=== PATIENT | male | born 1960 | race Caucasian/White ===

== ENCOUNTER 2019-10-14 17:29 | Emergency (ER) | payer BC ==
[2019-10-14] MEDS ORDERED: SODIUM CHLORIDE 0.9% 500 ML 500 ML IV STA (17:58)
--- NOTE | 2019-10-14 18:12 | ED ---
General Adult HPI - General Chief complaint: Extremity Injury, Upper Stated complaint: poss DVT Time Seen by Provider: 10/14/19 17:39 Source: patient, RN notes reviewed, old records reviewed Mode of arrival: EMS Limitations: no limitations - History of Present Illness Initial comments: 59-year-old male patient past history significant for a cardiac arrest in August 2019 resulting in a medically induced coma for 18 days, PEG tube placement [facility] for chief complaint of pain in right foot, right posterior calf, right shoulder. Patient reports this has been ongoing since she was discharged from hospital to subacute rehab for approximately one week. Denies any chest pain.Denies any other complaints. Systemic: Pt denies fatigue, fever/chills, rash. Pt denies weakness, night sweats, weight loss. Neuro: Pt denies headache, visual disturbances, syncope or pre-syncope. HEENT: Pt denies ocular discharge or irritation, otalgia, rhinorrhea, phary ngitis or notable lymphadenopathy. Cardiopulmonary: Pt denies chest pain, SOB, heart palpitations, dyspnea on exertion. Abdominal/GI: Pt denies abdominal pain, n/v/d. : Pt denies dysuria, burning w/ urination, frequency/urgency. Denies new onset urinary or bowel incontinence. MSK: Pt denies myalgia, loss of strength or function in extremities. Neuro: Pt denies new onset weakness, paresthesias. - Related Data Allergies Allergy/AdvReac Type Severity Reaction Status Date / Time No Known Allergies Allergy Verified 10/14/19 18:04 Review of Systems ROS Statement: Those systems with pertinent positive or pertinent negative responses have been documented in the HPI. ROS Other: All systems not noted in ROS Statement are negative. Past Medical History Past Medical History: Myocardial Infarction ([place]) Additional Past Medical History / Comment(s): [place] in Aug 2019, in coma 18 days, PEG tube History of Any Multi-Drug Resistant Organisms: None Reported Past Surgical History: Unable to Obtain Smoking Status: Former smoker Past Alcohol Use History: None Reported Past Drug Use History: None Reported General Exam - General Exam Comments Initial Comments: Constitutional: NAD, AOX3, Pt has pleasant affect. HEENT: NC/AT, trachea midline, neck supple, no lymphadenopathy. Posterior pharynx non erythematous, without exudates. External ears appear normal, without discharge. Mucous membranes moist. Eyes PERRLA, EOM intact. There is no scleral icterus. No pallor noted. Cardiopulmonary: RRR, no murmurs, rubs or gallops, no JVD noted. Lungs CTAB in anterior and posterior conti. No peripheral edema. Abdominal exam: Abdomen soft and non-distended. Abdomen non-tender to palpation in all 4 quadrants. Bowel sounds active in LLQ. No hepatosplenomegaly. No ecchymosis Neuro: CN II-XII grossly intact. No nuchal rigidity. No raccon eyes, no sánchez sign, no hemotympanum. No cervical spinal tenderness. MSK: Right calf mild tenderness to palpation, no skin changes, left calf nontender., homans sign negative bilaterally. radial pulse +2 bilaterally. Dorsalis pedis pulse +1 bilaterally. Sensation intact in upper and lower extremities. Right shoulder mild tenderness to palpation, worse with range of motion. Neurovascularly intact. No skin changes. Limitations: no limitations Course Vital Signs 10/14/19 10/14/19 10/14/19 17:39 18:23 19:19 Temperature 98.3 F Pulse Rate 71 80 71 Respiratory 18 18 17 Rate Blood Pressure 87/59 105/62 95/56 O2 Sat by Pulse 98 96 97 Oximetry Medical Decision Making - Medical Decision Making 59-year-old male patient past history significant for a cardiac arrest in August 2019 resulting in a medically induced coma for 18 days, PEG tube placement [facility] for chief complaint of pain in right foot, right posterior calf, right shoulder. Patient reports this has been ongoing since she was discharged from hospital to subacute rehab for approximately one week. Denies any chest pain.Denies any other complaints. Patient vital signs displayed very mild hypotension, otherwise stable, with a couple of the discharge. Physical exam displayed a posterior calf nontender, no skin changes. Right anterior shoulder mildly tender worsen with range of motion. Left investigations were obtained. Troponin 0.018. BNP 2790. Sodium of 130. Ultrasound chest x-ray shoulder did not display acute process. EKG does display T-wave inversions no prior for comparison. Patient's pain is feeling much improved. Patient discharged to follow-up with primary care provider will return to ER physician worsens. Case discussed and pt seen by Dr. Bernardo. - Lab Data Result diagrams: 10/14/19 17:40 10/14/19 17:40 Lab Results 10/14/19 10/14/19 10/14/19 Range/Units 17:40 17:40 17:40 WBC 12.7 H (3.8-10.6) k/uL RBC 3.42 L (4.30-5.90) m/uL Hgb 9.7 L (13.0-17.5) gm/dL Hct 30.9 L (39.0-53.0) % MCV 90.3 (80.0-100.0) fL MCH 28.5 (25.0-35.0) pg MCHC 31.5 (31.0-37.0) g/dL RDW 14.1 (11.5-15.5) % Plt Count 478 H (150-450) k/uL Neutrophils % 66 % Lymphocytes % 22 % Monocytes % 6 % Eosinophils % 3 % Basophils % 0 % Neutrophils # 8.4 H (1.3-7.7) k/uL Lymphocytes # 2.8 (1.0-4.8) k/uL Monocytes # 0.8 (0-1.0) k/uL Eosinophils # 0.4 (0-0.7) k/uL Basophils # 0.0 (0-0.2) k/uL Hypochromasia Slight PT 11.1 (9.0-12.0) sec INR 1.1 (<1.2) APTT 25.7 (22.0-30.0) sec Sodium 130 L (137-145) mmol/L Potassium 4.2 (3.5-5.1) mmol/L Chloride 94 L (98-107) mmol/L Carbon Dioxide 27 (22-30) mmol/L Anion Gap 9 mmol/L BUN 19 (9-20) mg/dL Creatinine 0.68 (0.66-1.25) mg/dL Est GFR (CKD-EPI)AfAm >90 (>60 ml/min/1.73 sqM) Est GFR (CKD-EPI)NonAf >90 (>60 ml/min/1.73 sqM) Glucose 85 (74-99) mg/dL Plasma Lactic Acid Eric (0.7-2.0) mmol/L Calcium 9.4 (8.4-10.2) mg/dL Magnesium 1.8 (1.6-2.3) mg/dL Total Bilirubin 0.8 (0.2-1.3) mg/dL AST 51 (17-59) U/L ALT 56 H (4-49) U/L Alkaline Phosphatase 118 (38-126) U/L Troponin I (0.000-0.034) ng/mL NT-Pro-B Natriuret Pep pg/mL Total Protein 6.5 (6.3-8.2) g/dL Albumin 3.3 L (3.5-5.0) g/dL 10/14/19 10/14/19 10/14/19 Range/Units 17:40 17:40 17:40 WBC (3.8-10.6) k/uL RBC (4.30-5.90) m/uL Hgb (13.0-17.5) gm/dL Hct (39.0-53.0) % MCV (80.0-100.0) fL MCH (25.0-35.0) pg MCHC (31.0-37.0) g/dL RDW (11.5-15.5) % Plt Count (150-450) k/uL Neutrophils % % Lymphocytes % % Monocytes % % Eosinophils % % Basophils % % Neutrophils # (1.3-7.7) k/uL Lymphocytes # (1.0-4.8) k/uL Monocytes # (0-1.0) k/uL Eosinophils # (0-0.7) k/uL Basophils # (0-0.2) k/uL Hypochromasia PT (9.0-12.0) sec INR (<1.2) APTT (22.0-30.0) sec Sodium (137-145) mmol/L Potassium (3.5-5.1) mmol/L Chloride (98-107) mmol/L Carbon Dioxide (22-30) mmol/L Anion Gap mmol/L BUN (9-20) mg/dL Creatinine (0.66-1.25) mg/dL Est GFR (CKD-EPI)AfAm (>60 ml/min/1.73 sqM) Est GFR (CKD-EPI)NonAf (>60 ml/min/1.73 sqM) Glucose (74-99) mg/dL Plasma Lactic Acid Eric 1.2 (0.7-2.0) mmol/L Calcium (8.4-10.2) mg/dL Magnesium (1.6-2.3) mg/dL Total Bilirubin (0.2-1.3) mg/dL AST (17-59) U/L ALT (4-49) U/L Alkaline Phosphatase (38-126) U/L Troponin I 0.018 (0.000-0.034) ng/mL NT-Pro-B Natriuret Pep 2790 pg/mL Total Protein (6.3-8.2) g/dL Albumin (3.5-5.0) g/dL - EKG Data -: EKG Interpreted by Me (and Dr. Bernardo) EKG Comments: Ventricular rate 60,. Flow 186, QRS 86, QT/QTc 508/ 540. Normal sensory rhythm, T-wave inversions noted in V1 and V2 V3 aVR, no prior for comparison. Disposition Clinical Impression: Shoulder pain, Leg pain Disposition: HOME SELF-CARE Condition: Stable Instructions (If sedation given, give patient instructions): Musculoskeletal Pain (ED) Additional Instructions: Follow-up with primary care provider tomorrow. Return to ER if condition worsens in any way. Is patient prescribed a controlled substance at d/c from ED?: No Referrals: Valente Beard DO [Primary Care Provider] - 1-2 days
[2019-10-14] MEDS ORDERED: ACETAMINOPHEN TAB 325 MG TAB PO STA (18:13)
[2019-10-14 18:15] LABS: Basophils % (A) 0 %; Eosinophils # (A) 0.4 k/uL (0-0.7); Eosinophils % (A) 3 %; HCT 30.9 % (39.0-53.0); HGB 9.7 gm/dL (13.0-17.5); Hypochromasia Slight; Lymphocytes # (A) 2.8 k/uL (1.0-4.8); Lymphocytes % (A) 22 %; MCH 28.5 pg (25.0-35.0); MCHC 31.5 g/dL (31.0-37.0); MCV 90.3 fL (80.0-100.0); Mean Platelet Volume 7.1; Monocytes # (A) 0.8 k/uL (0-1.0); Monocytes % (A) 6 %; Neutrophils # (A) 8.4 k/uL (1.3-7.7); Neutrophils % (A) 66 %; Platelet Count 478 k/uL (150-450); RBC 3.42 m/uL (4.30-5.90); RDW 14.1 % (11.5-15.5); WBC 12.7 k/uL (3.8-10.6)
[2019-10-14 18:25] LABS: ALT 56 U/L (4-49); AST 51 U/L (17-59); African American GFR (CKD) >90 (>60 ml/min/1.73 sqM); Albumin 3.3 g/dL (3.5-5.0); Alkaline Phosphatase 118 U/L (38-126); Anion Gap 9 mmol/L; Blood Urea Nitrogen 19 mg/dL (9-20); Calcium 9.4 mg/dL (8.4-10.2); Carbon Dioxide 27 mmol/L (22-30); Chloride 94 mmol/L (98-107); Glucose 85 mg/dL (74-99); INR 1.1 (<1.2); Magnesium 1.8 mg/dL (1.6-2.3); Non-African American GFR(CKD) >90 (>60 ml/min/1.73 sqM); Partial Thromboplastin Time 25.7 sec (22.0-30.0); Potassium 4.2 mmol/L (3.5-5.1); Prothrombin Time 11.1 sec (9.0-12.0); Sodium 130 mmol/L (137-145); Total Bilirubin 0.8 mg/dL (0.2-1.3); Total Protein 6.5 g/dL (6.3-8.2)
[2019-10-14] MEDS ORDERED: MORPHINE SULFATE 4 MG/ML SYRINGE IV STA (18:50)
--- NOTE | 2019-10-14 19:30 | XR ---
EXAMINATION TYPE: XR chest 2V DATE OF EXAM: 10/14/2019 COMPARISON: NONE HISTORY: Chest pain TECHNIQUE: FINDINGS: There is no heart failure nor confluent pneumonic infiltrate. There is some coarsening of t he lung markings at the lung bases. There is mild pleural thickening at the lung apices. Bony thorax is intact. IMPRESSION: Mild pleural scarring. Normal heart. No heart failure seen.
--- NOTE | 2019-10-14 19:31 | XR ---
EXAMINATION TYPE: XR shoulder complete RT DATE OF EXAM: 10/14/2019 COMPARISON: NONE HISTORY: Shoulder pain TECHNIQUE: 3 views FINDINGS: I see no fracture nor dislocation. Glenohumeral joint is intact. IMPRESSION: Negative right shoulder exam. No fracture.
--- NOTE | 2019-10-14 19:34 | US ---
EXAMINATION TYPE: US venous doppler duplex LE RT DATE OF EXAM: 10/14/2019 6:58 PM COMPARISON: NONE CLINICAL HISTORY: pain. Pain in right leg x 9 days. Hx DVT right lower extremity. Patient takes aspir in. SIDE PERFORMED: Right TECHNIQUE: The lower extremity deep venous system is examined utilizing real time linear array sonog michele with graded compression, doppler sonography and color-flow sonography. VESSELS IMAGED: External Iliac Vein (EIV) Common Femoral Vein Deep Femoral Vein Greater Saphenous Vein * Femoral Vein Popliteal Vein Small Saphenous Vein * Proximal Calf Veins (* superficial vessels) Right Leg: No evidence of DVT in veins imaged at this time from prox calf veins to EIV. IMPRESSION: No sign of deep vein thrombosis in the right leg.
[2019-10-14] MEDS ORDERED: SODIUM CHLORIDE 0.9% 250 ML IV SCH (19:45)
[2019-10-14 20:04] LABS: Appearance,Urine Cloudy (Clear); Bacteria,Urine Many /hpf; Bilirubin,Urine Negative (Negative); Blood,Urine Moderate (Negative); Color,Urine Yellow; Glucose,Urine (UA) Negative (Negative); Hyaline Casts,Urine 5 /lpf (0-2); Ketones,Urine Negative (Negative); Leukocyte Esterase,Urine Large (Negative); Mucus,Urine Rare /hpf; Nitrite,Urine Positive (Negative); PH, Urine 7.5 (5.0-8.0); Protein,Urine Trace (Negative); RBC,Urine 69 /hpf (0-5); Specific Gravity,Urine 1.013 (1.001-1.035); Squamous Epithelial Cell,Urine <1 /hpf (0-4); Urobilinogen,Urine <2.0 mg/dL (<2.0); WBC,Urine >182 /hpf (0-5)
[2019-10-14 20:53] VITALS: BP 101/57; PULSE 72; RESP 18; TEMP 97.9
== END 2019-10-14 21:10 | disposition home or self-care (01) ==
LOC: EC 17:29
DX: M25.511 Pain in right shoulder (principal); M79.671 Pain in right foot; M79.661 Pain in right lower leg; I95.9 Hypotension, unspecified; R94.31 Abnormal electrocardiogram [ECG] [EKG]; I25.2 Old myocardial infarction; Z86.79 Personal history of other diseases of the circulatory system; Z93.1 Gastrostomy status; Z87.891 Personal history of nicotine dependence
CPT/HCPCS: 36415; 93005; 83880; 80053; 83605; 83735; 84484; 85025; 85610; 85730; 81001; 87086; 73030; 71046; 93971; 96374; 96361; 99285; J2270; 87077; 87186